=== PATIENT | female | born 1960 | race Caucasian/White ===

== ENCOUNTER 2024-03-07 08:03 | Emergency (ER) | payer MEDICARE, SELFPAY ==
--- NOTE | 2024-03-07 08:13 | ED.URI ---
HPI - URI/Sore Throat General Chief Complaint: Upper Respiratory Infection Stated Complaint: SORE THROAT/FEVER Time Seen by Provider: 03/07/24 08:13 Source: patient and RN notes reviewed Mode of arrival: ambulatory Limitations: no limitations History of Present Illness HPI Narrative: 63-year-old female presents with concern for sore throat for 1 week. She reports 2 week history of cough. Reports she developed a 100.4 fever last night. Reports she recently traveled and [place] a [place] was [place]. She reports she got an inhaler while she was out of town which she has been using and it does help. She denies nasal congestion or rhinorrhea MD elicited complaint: cough and sore throat Related Data Home Medications Medication Instructions Recorded Confirmed bimatoprost 0.01 % eye drops 1 drp ophthalmic (eye) USEASDIRECTD 03/07/24 03/07/24 (Lumigan) conjugated estrogens 0.625 mg/gram 0.625 mg vaginal USEASDIRECTD 03/07/24 03/07/24 vaginal cream (Premarin) fluorometholone 0.1 % eye 1 drp ophthalmic (eye) USEASDIRECTD 03/07/24 03/07/24 drops,suspension lorazepam 1 mg tablet 1 mg PO PRN PRN Anxiety 03/07/24 03/07/24 methenamine hippurate 1 gram tablet 1 g PO BID 03/07/24 03/07/24 timolol maleate 0.5 % eye drops 1 drp ophthalmic (eye) USEASDIRECTD 03/07/24 03/07/24 Allergies Allergy/AdvReac Type Severity Reaction Status Date / Time ofloxacin Allergy Other Verified 03/07/24 08:24 Tetracyclines Allergy Other Verified 03/07/24 08:24 Review of Systems Review of Systems: CONSTITUTIONAL: Denies malaise, chills, sweats. Reports low-grade fever. EYES: Denies visual changes, redness, or discharge. ENT: Denies rhinorrhea, congestion, sinus pain, otalgia. Reports sore throat and hoarse voice CARDIOVASCULAR: Denies chest pain, palpitations, or edema. RESPIRATORY: Reports cough. Denies dyspnea. GASTROINTESTINAL: Denies abdominal pain, nausea, vomiting, diarrhea SKIN: Denies rash or itching. MUSCULOSKELETAL: Denies myalgia. NEUROLOGIC: Denies headache. All systems reviewed & are unremarkable except as noted in HPI and below PMFSH Comments At time of signature, agree with nursing past medical, surgical, social and family history. There is no relevant family history pertinent to the presenting complaint Exam Narrative: GENERAL: Well-appearing, well-nourished, and in no acute distress. HEAD: Normocephalic EYES: PERRLA, conjunctivae clear ENT: Nares clear. Mucous membranes moist. TM pearly roa with dull light reflex bilaterally; no tragal tenderness. Oropharynx erythematous without lesions. Tonsils not enlarged and without exudate, no drooling, no trismus, uvula midline. Mild hoarse voice NECK: Supple. No lymphadenopathy CHEST: Clear to auscultation, breath sounds equal. No wheezing, rhonchi, rales, or stridor. No respiratory distress, speaks in full sentences. HEART: Regular rate and rhythm. No murmur heard. SKIN: Warm, dry, no rash. NEURO: Alert and oriented x3. PSYCH: Normal mood and affect Course Course Emergency Course: Patient is aware of diagnosis, understands and agrees to treatment plan. Anticipatory guidance given. Patient agrees to follow-up as directed and is aware of reasons to seek care at the emergency department. Portions of this record may have been created with voice recognition software Level of Care: Express Care Visit Vital Signs Vital signs: Vital Signs Temperature 98.5 F 03/07/24 08:23 Pulse Rate 89 03/07/24 08:23 Respiratory Rate 16 03/07/24 08:23 Blood Pressure 138/79 03/07/24 08:23 Pulse Oximetry 98 03/07/24 08:23 Temperature 98.5 F 03/07/24 08:27 Pulse Rate 89 03/07/24 08:27 Respiratory Rate 16 03/07/24 08:27 Blood Pressure 138/79 03/07/24 08:27 Pulse Oximetry 98 03/07/24 08:27 Reviewed. MDM - URI/Sore Throat MDM Narrative Medical decision making narrative: Differential diagnosis considered: Khan virus, strep pharyngit
[2024-03-07 08:23] VITALS: BP 138/79; PULSE 89; RESP 16; TEMP 36.9; O2SAT 98
[2024-03-07 08:27] VITALS: BP 138/79; PULSE 89; RESP 16; TEMP 36.9; O2SAT 98
[2024-03-07 08:31] LABS: EDSTREPNEGPOS1 Negative (Negative)
== END 2024-03-07 08:46 | disposition home or self-care (01) ==
PROVIDERS: Emergency Provider Nurse Practitioner
DX: J06.9 Acute upper respiratory infection, unspecified (principal)
CPT/HCPCS: 87081; 87880; 99203; G0463